=== PATIENT | female | born 1975 | race Caucasian/White ===

== ENCOUNTER → 2019-12-20 13:21 | Outpatient (CLI) | payer OTHER ==
--- NOTE | ~2019-12-20 | ST ---
PATIENT:VIANEY HORNE MEDICAL RECORD: [id number] SEX: F LOCATION:[facility] ORDER #: ADMISSION DATE: 12/20/19 AGE OF PATIENT: 44 REFERRING PHYSICIAN: INTERPRETING PHYSICIAN: MINA GEORGE MD DATE OF SERVICE: 12/20/2019 PROCEDURE: Treadmill stress test. She exercised for 9 minutes on Fabricio protocol with maximum heart rate 104 beats per minute, greater than 85% max predicted. No ECG changes for ischemia. No symptoms of ischemia. Normal blood pressure response to exercise. Test terminated due to dyspnea. TRANSINT:[id number] Voice Confirmation ID: [id number] DOCUMENT ID: [id number] MINA GEORGE MD CC: [id number] DICTATION DATE: 12/21/19 1539 GLOBAL IMPLEMENTATION MANAGER: 12/22/19 0739 [facility] CLI 12/20/19 [id number] [place] [address]
--- NOTE | 2019-12-21 13:11 | EC ---
PATIENT:VIANEY HORNE DATE OF SERVICE: 12/20/19 SEX: F MEDICAL RECORD: [id number] DATE OF : 79 LOCATION:[facility], [facility] AGE OF PATIENT: 44 ADMISSION DATE: 12/20/19 REFERRING PHYSICIAN: INTERPRETING PHYSICIAN: MINA GEORGE MD ECHOCARDIOGRAM REPORT ECHO CHARGES 4 ECHO COMPLETE Date: 12/20/19 CLINICAL DIAGNOSIS: HEART MURMUR/ CHEST PAIN ECHOCARDIOGRAPHIC MEASUREMENTS (adult normal given) AC root (d.<3.7cm) 3.4 cm LV Septum d (<1.2 cm> 1.1 cm Valve Excursion 1.8 cm LV Septum (systole) 1.4 cm Left Atria (s.<4.0cm> 3.8 cm LVPW d(<1.2cm) 1.5 cm RV (d.<2.3cm) 3.4 cm LVPW (sytole) 1.7 cm LV diastole(<5.6CM) 4.7 cm MV E-F(>70mm/sec) cm LV systole 3.1 cm LVOT Diameter 2.0 cm MV exc.(>10mm) 2.1 cm Est.ejection fraction (50-75%) % DOPPLER: LVIT cm/sec A 63.0 cm/sec E 88.0 cm/sec LA cm/sec RVSP 27 mmHg LVOT 88 cm/sec AOP1/2T m/s Asc. Ao 106 cm/sec RVOT 80 cm/sec RA cm/sec PA 109 cm/sec AV Gradient Peak 4.46 mmHg AV Mean 2.40 mmHg AV Area 2.4 cm MV Gradient Peak 3.17 mmHg MV Mean 1.19 mmHg MV Area cm COMMENTS: Technology Professional: 2 IVAN KOHLI Market Survey Representative: 3 Dr. Barajas TAPE# pacs Pericardial Effusion N DATE OF SERVICE: Adequate 2D, color flow imaging, spectral Doppler, and M-Mode. No LVH. LV internal dimensions are normal. Wall motion is normal. EF is greater than or equal to 55%. Aortic valve is tricuspid. No evidence of stenosis by Doppler interrogation. Left atrium is normal. Mitral shows no prolapse. Trace MR. Right-sided chambers are grossly normal. Trace TR. TRANSINT:[id number] Voice Confirmation ID: [id number] DOCUMENT ID: [id number] ECHOCARDIOGRAM REPORT [id number] OZZIE,VIANEY GEORGE,MINA Campbell MD at 1311 CC: [id number] DICTATION DATE: 12/20/19 1504 WEIGHT CONTROL ENGINEER: 12/20/19 2345 [facility] CLI 12/20/19 [facility] [address] [place] [address]
== END | disposition home or self-care (01) ==
LOC: D.HCCECHO 13:21
PROVIDERS: ATTEND Internal Medicine Interventional Cardiology
DX: R01.1 Cardiac murmur, unspecified (principal); R07.9 Chest pain, unspecified